=== PATIENT | female | born 1990 | race Caucasian/White ===

== ENCOUNTER 2017-05-20 15:57 | Emergency (ER) | payer BC ==
[~2017-05-20] VITALS: Ht 157.5 cm; Wt 118.8 kg
[2017-05-20 16:08] VITALS: BP_SYST 124
[2017-05-20] MEDS ORDERED: IBUPROFEN 800 MG TABLET PO ONE (16:30)
[2017-05-20] MEDS ORDERED: DEXAMETHASONE SOD PHOSPHATE 10 MG/ML VIAL IM ONE (16:30)
--- NOTE | 2017-05-20 17:00 | NUR ---
Patient to ER bed H2 to gown for evaluation. Side rails up.
--- NOTE | 2017-05-20 17:10 | NUR ---
Pt brought by partner, A&Ox4, pt c/o sore throat x 3 days and dysphagia with intermittent fever, afebrile at this time, skin pink and warm, respirations even and unlabored, cap refill <3.
--- NOTE | 2017-05-20 17:10 | NUR ---
Gaye Soliman [employer] at bedside examining patient
[2017-05-20] MEDS ORDERED: PENICILLIN G BENZATHINE 1.2 MMU/2 ML SYR IM ONE (17:30)
--- NOTE | 2017-05-20 17:31 | NUR ---
Pt medicated as ordered, medications well tolerated
--- NOTE | 2017-05-20 18:25 | NUR ---
Patient given written and verbal discharge instructions and verbalizes understanding. ER MD discussed with patient the results and treatment provided. Patient in stable condition. ID arm band removed. Rx of Prednisone, Motrin given. Patient educated on pain management and to follow up with PMD. Pain Scale 4. Opportunity for questions provided and answered. Patient left ER in nad, no adverse reaction noted to medication. Patient able to ambulate without difficulty with slow, steady gait.
== END 2017-05-20 18:23 | disposition home or self-care (01) ==
LOC: SED 15:57
DX: J02.8 Acute pharyngitis due to other specified organisms (principal); B96.89 Other specified bacterial agents as the cause of diseases classified elsewhere; F12.90 Cannabis use, unspecified, uncomplicated; R03.0 Elevated blood-pressure reading, without diagnosis of hypertension; Z86.2 Personal history of diseases of the blood and blood-forming organs and certain disorders involving the immune mechanism; Z71.6 Tobacco abuse counseling
CPT/HCPCS: 36415; 81025; 86403; 96372; 99284; J0561; J1100

== ENCOUNTER 2017-07-10 16:52 | Emergency (ER) | payer BC, MEDICAID ==
[~2017-07-10] VITALS: Ht 157.5 cm; Wt 117.9 kg
[2017-07-10 17:30] VITALS: BP_SYST 143
[2017-07-10 18:36] LABS: INFLUENZA A&B ANTIGEN SCREEN NEGATIVE FOR A & B (NEGATIVE); STREPTOCOCCUS A SCREEN (RAPID) NEGATIVE (NEGATIVE)
--- NOTE | 2017-07-10 19:01 | NUR ---
Ambulatory to [facility] chair 1. Report given to PEYTON Davis
--- NOTE | 2017-07-10 19:05 | NUR ---
Patient to ER via triage with c/o cough and sore throat x 3 days. Patient is awake, alert and oriented in no acute distress, able to ambulate from waiting room to Hallway with slow, steady gait without difficulty. Patient is able to handle her secretions. Patient is awaiting evaluation by ER MD/PA. Patient has had lab specimens/swabs obtained while patient was in triage.
[2017-07-10] MEDS ORDERED: DEXAMETHASONE SOD PHOSPHATE 10 MG/ML VIAL IM ONE (19:30)
[2017-07-10] MEDS ORDERED: KETOROLAC TROMETHAMINE 15 MG VIAL IM ONE (19:30)
--- NOTE | 2017-07-10 19:30 | NUR ---
MARYAM Mendoza at bedside for assess/eval
[2017-07-10 20:30] VITALS: BP_SYST 130
--- NOTE | 2017-07-10 20:30 | NUR ---
Patient given written and verbal discharge instructions and verbalizes understanding. ER MD discussed with patient the results and treatment provided. Patient in stable condition. ID arm band removed. Rx of Promethazine and Ibuprofen given. Patient educated on pain management and to follow up with PMD within 2-3days. Pain Scale 7/10; tolerable and does not wish for interventions at this time; pt and MD agreeable to discharge home. Opportunity for questions provided and answered.
== END 2017-07-10 20:30 | disposition home or self-care (01) ==
LOC: SED 16:52
DX: J06.9 Acute upper respiratory infection, unspecified (principal); J02.9 Acute pharyngitis, unspecified; F12.10 Cannabis abuse, uncomplicated
CPT/HCPCS: 36415; 81025; 86403; 86710; 87081; 96372; 99284; J1100; J1885

== ENCOUNTER 2017-07-30 15:38 | Emergency (ER) | payer BC, MEDICAID ==
[~2017-07-30] VITALS: Ht 157.5 cm; Wt 116.1 kg
[2017-07-30 15:38] VITALS: BP_SYST 130
[2017-07-30] MEDS ORDERED: KETOROLAC TROMETHAMINE 60 MG/2 ML VIAL IM ONE (16:30)
[2017-07-30] MEDS ORDERED: DEXAMETHASONE SOD PHOSPHATE 10 MG/ML VIAL IM ONE (16:30)
[2017-07-30 16:58] LABS: INFLUENZA A&B ANTIGEN SCREEN NEGATIVE FOR A & B (NEGATIVE); STREPTOCOCCUS A SCREEN (RAPID) NEGATIVE (NEGATIVE)
[2017-07-30] MEDS ORDERED: ACETAMINOPHEN 500 MG TABLET PO ONE (17:30)
[2017-07-30] MEDS ORDERED: ACETAMINOPHEN 500 MG TABLET ONE (17:31)
[2017-07-30 17:34] VITALS: BP_SYST 136
== END 2017-07-30 17:34 | disposition home or self-care (01) ==
LOC: SED 15:38
DX: J02.9 Acute pharyngitis, unspecified (principal); R03.0 Elevated blood-pressure reading, without diagnosis of hypertension; Z86.2 Personal history of diseases of the blood and blood-forming organs and certain disorders involving the immune mechanism; E66.9 Obesity, unspecified; Z68.42 Body mass index [BMI] 45.0-49.9, adult
CPT/HCPCS: 36415; 86403; 86710; 87081; 96372; 99284; J1100; J1885; 85732